=== PATIENT | female | born 1970 | race Caucasian/White ===

== ENCOUNTER → 2016-07-12 | Day surgery (SDC) | payer MEDICARE ==
[~2016-07-12] MED LIST: CETIRIZINE HCL10 M1 PO; COLACE 100MG C100 MG PO; DIPROSONE 0.05%15 GM TOP; FLOVENT 440.088 GM/I INH; GABAPENTIN400 MG PO; HYDROXYZINE PAM25 MG PO; KENALOG CREAM 015 GM TOP; LORATADINE10 MG PO; LORAZEPAM0.5 MG PO; OTEZLA30 MG PO; PAROXETINE HCL20 MG PO; TOPAMAX50 MG PO; VENTOLIN/PROVE0.5 ML INH; VITAMIN B-121000 MCG PO
== END | disposition home or self-care (01) ==
LOC: OR 07:28
PROVIDERS: Internal Medicine Gastroenterology
PROC: 0DJD8ZZ Inspection of Lower Intestinal Tract, Via Natural or Artificial Opening Endoscopic (ICD-10-PCS; principal; 2016-07-12 10:30)
DX: K64.8 Other hemorrhoids (principal); K64.4 Residual hemorrhoidal skin tags; K60.2 Anal fissure, unspecified; K62.5 Hemorrhage of anus and rectum; R16.0 Hepatomegaly, not elsewhere classified; K76.0 Fatty (change of) liver, not elsewhere classified; E66.9 Obesity, unspecified; R74.8 Abnormal levels of other serum enzymes; Z85.43 Personal history of malignant neoplasm of ovary; Z85.42 Personal history of malignant neoplasm of other parts of uterus; Z85.89 Personal history of malignant neoplasm of other organs and systems; Z79.52 Long term (current) use of systemic steroids; Z79.891 Long term (current) use of opiate analgesic; Z79.899 Other long term (current) drug therapy; Z90.710 Acquired absence of both cervix and uterus; Z82.49 Family history of ischemic heart disease and other diseases of the circulatory system; Z83.3 Family history of diabetes mellitus
CPT/HCPCS: J7030

== ENCOUNTER 2016-07-17 10:25 | Emergency (ER) | payer OTHER, MEDICARE | END 2016-07-17 13:10 | disposition home or self-care (01) | LOC: ER1 10:25 | DX: S39.012A Strain of muscle, fascia and tendon of lower back, initial encounter (principal); S80.12XA Contusion of left lower leg, initial encounter; S80.212A Abrasion, left knee, initial encounter; V43.62XA Car passenger injured in collision with other type car in traffic accident, initial encounter; Y92.410 Unspecified street and highway as the place of occurrence of the external cause | CPT/HCPCS: 29125; 70450; 71020; 72125; 72131; 73110; 73590; 73610; 73630; 99284 ==

== ENCOUNTER → 2016-08-09 | Outpatient (CLI) | payer MEDICARE | LOC: LAB 14:47 | DX: K76.0 Fatty (change of) liver, not elsewhere classified (principal) | CPT/HCPCS: 36415; 82103; 82728; 83540; 83550 ==

== ENCOUNTER → 2016-09-25 | Outpatient (CLI) | payer MEDICARE | LOC: CT 09:00 | DX: R10.13 Epigastric pain (principal); R11.2 Nausea with vomiting, unspecified; K82.0 Obstruction of gallbladder; K80.20 Calculus of gallbladder without cholecystitis without obstruction; Z85.43 Personal history of malignant neoplasm of ovary ==

== ENCOUNTER → 2016-09-26 | Outpatient (CLI) | payer MEDICARE | LOC: LAB 11:39 | DX: K76.0 Fatty (change of) liver, not elsewhere classified (principal) | CPT/HCPCS: 36415; 82103; 82104 ==

== ENCOUNTER → 2020-04-27 | Outpatient (CLI) | payer MEDICARE, OTHER ==
[~2020-04-27] MED LIST changes: +FLEXERIL 10 MG10 MG PO
== END ==
LOC: KOH-I 12:37
DX: M79.661 Pain in right lower leg (principal); M79.672 Pain in left foot; M25.572 Pain in left ankle and joints of left foot; S82.65XA Nondisplaced fracture of lateral malleolus of left fibula, initial encounter for closed fracture; M79.89 Other specified soft tissue disorders; S92.355A Nondisplaced fracture of fifth metatarsal bone, left foot, initial encounter for closed fracture; W19.XXXA Unspecified fall, initial encounter
CPT/HCPCS: 73590; 73610; 73630

== ENCOUNTER → 2020-04-28 | Outpatient (CLI) | payer MEDICARE, OTHER | LOC: KOH-I 10:20 | DX: J43.9 Emphysema, unspecified (principal) | CPT/HCPCS: 71046 ==

== ENCOUNTER → 2020-06-29 | Outpatient (CLI) | payer MEDICARE, OTHER | LOC: KOH-I 10:19 | DX: K76.0 Fatty (change of) liver, not elsewhere classified (principal) | CPT/HCPCS: 76705 ==

== ENCOUNTER → 2020-09-13 | Outpatient (CLI) | payer MEDICARE, OTHER ==
[2020-09-13 13:06] LABS: HEMOGLOBIN 12.5 gm/dl (12.3-15.3); RED BLOOD COUNT 4.18 M/UL (4.00-5.10); WHITE BLOOD COUNT 9.5 K/UL (4.5-11.0)
[2020-09-13 13:28] LABS: BUN/CREATININE RATIO 16 (0-10)
[2020-09-14 10:15] LABS: THYROXINE (T4) 8.7 ug/dL (4.5-12.0)
== END ==
LOC: LAB 10:37
PROVIDERS: Nurse Practitioner Family
DX: Z13.220 Encounter for screening for lipoid disorders (principal); R53.82 Chronic fatigue, unspecified; R73.9 Hyperglycemia, unspecified; E78.5 Hyperlipidemia, unspecified
CPT/HCPCS: 36415; 80053; 80061; 81001; 83036; 84436; 84443; 84480; 85025

== ENCOUNTER → 2020-10-19 | Outpatient (CLI) | payer MEDICARE, OTHER ==
[2020-10-19 07:07] LABS: HEMOGLOBIN 12.3 gm/dl (12.3-15.3); RED BLOOD COUNT 4.09 M/UL (4.00-5.10); WHITE BLOOD COUNT 10.1 K/UL (4.5-11.0)
[2020-10-19 07:19] LABS: BUN/CREATININE RATIO 13 (0-10)
== END ==
LOC: LAB 06:31
PROVIDERS: Nurse Practitioner Family
DX: N39.0 Urinary tract infection, site not specified (principal); E87.6 Hypokalemia; R74.8 Abnormal levels of other serum enzymes
CPT/HCPCS: 36415; 80053; 81001; 85025; 85652; 86140

== ENCOUNTER → 2020-11-21 | Outpatient (CLI) | payer MEDICARE, OTHER | LOC: RAD 11:53 | DX: Z12.2 Encounter for screening for malignant neoplasm of respiratory organs (principal); J43.9 Emphysema, unspecified | CPT/HCPCS: 71046 ==

== ENCOUNTER → 2021-03-09 | Outpatient (CLI) | payer MEDICARE, OTHER | LOC: KOH-I 03-08 08:30 | DX: M54.50 Low back pain, unspecified (principal); R29.818 Other symptoms and signs involving the nervous system; M51.36 Other intervertebral disc degeneration, lumbar region | CPT/HCPCS: 72148 ==

== ENCOUNTER → 2021-05-12 | Outpatient (CLI) | payer MEDICARE ==
[2021-05-13 08:13] LABS: ALBUMIN 4.8 g/dL (3.8-4.9); BILIRUBIN, DIRECT 0.17 mg/dL (0.00-0.40); BILIRUBIN, TOTAL 0.6 mg/dL (0.0-1.2); PROTEIN, TOTAL 7.9 g/dL (6.0-8.5)
== END ==
LOC: LAB 09:56
PROVIDERS: Internal Medicine Gastroenterology
DX: R94.5 Abnormal results of liver function studies (principal); J06.9 Acute upper respiratory infection, unspecified; R06.00 Dyspnea, unspecified; J84.9 Interstitial pulmonary disease, unspecified
CPT/HCPCS: 36415; 71046; 80076

== ENCOUNTER → 2021-05-15 | Outpatient (CLI) | payer MEDICARE, OTHER | LOC: US 05-05 09:30 | DX: K76.0 Fatty (change of) liver, not elsewhere classified (principal); R94.5 Abnormal results of liver function studies | CPT/HCPCS: 36415; 76705; 80076 ==

== ENCOUNTER → 2021-07-12 | Outpatient (CLI) | payer MEDICARE, OTHER | LOC: LAB 10:57 | DX: E78.5 Hyperlipidemia, unspecified (principal); R94.5 Abnormal results of liver function studies | CPT/HCPCS: 36415; 80061; 80076 ==

== ENCOUNTER 2021-12-25 10:12 | Emergency (ER) | payer MEDICARE, OTHER ==
[2021-12-25 12:29] LABS: HEMOGLOBIN 12.8 gm/dl (12.3-15.3); RED BLOOD COUNT 4.44 M/UL (4.00-5.10)
[2021-12-25 12:52] LABS: BUN/CREATININE RATIO 20 (0-10)
== END 2021-12-25 16:34 | disposition home or self-care (01) ==
LOC: ER1 10:12
PROVIDERS: Emergency Medicine
DX: J06.9 Acute upper respiratory infection, unspecified (principal); R94.5 Abnormal results of liver function studies; E78.5 Hyperlipidemia, unspecified; F17.200 Nicotine dependence, unspecified, uncomplicated; Z20.822 Contact with and (suspected) exposure to COVID-19
CPT/HCPCS: 71045; 80053; 81001; 82550; 82553; 84484; 85025; 99283; U0002